=== PATIENT | female | born 1960 | race Caucasian/White ===

== ENCOUNTER 2017-06-07 15:17 | Emergency (ER) | payer OTHER ==
[~2017-06-07] VITALS: Ht 160 cm; Wt 86.2 kg
[~2017-06-07 15:17] MED LIST: DIOVAN HCT 320/1 TAB; METFORMIN HCL500 M1
== END 2017-06-08 15:38 | disposition home or self-care (01) ==
LOC: ER 15:17
DX: J45.998 Other asthma (principal); J32.8 Other chronic sinusitis

== ENCOUNTER 2018-01-18 09:28 | Outpatient (CLI) | payer OTHER | END 2018-01-18 15:16 | disposition home or self-care (01) | LOC: SONOGRAMA 09:28 | DX: M79.641 Pain in right hand (principal) ==

== ENCOUNTER 2020-11-01 15:24 | Inpatient (IN) | payer OTHER ==
[~2020-11-01] VITALS: Ht 160 cm; Wt 86.2 kg
== END 2020-11-05 11:27 | disposition home or self-care (01) | DRG 203 ==
LOC: ER 15:24 → MEDJ 22:39 → MEDI 11-02 19:21
PROVIDERS: ADMIT Internal Medicine; ATTEND Internal Medicine
PROC: 3E0F7GC Introduction of Other Therapeutic Substance into Respiratory Tract, Via Natural or Artificial Opening (ICD-10-PCS; principal; 2020-11-01)
PROC: 4A033R1 Measurement of Arterial Saturation, Peripheral, Percutaneous Approach (ICD-10-PCS; 2020-11-03)
DX: J45.902 Unspecified asthma with status asthmaticus (principal); E03.8 Other specified hypothyroidism; I10 Essential (primary) hypertension; E11.9 Type 2 diabetes mellitus without complications; Z79.4 Long term (current) use of insulin; Z20.822 Contact with and (suspected) exposure to COVID-19